=== PATIENT | female | born 1985 | race Caucasian/White ===

== ENCOUNTER 2019-06-30 07:28 | Outpatient (CLI) | payer OTHER, MEDICAID, SELFPAY ==
--- NOTE | 2019-06-30 07:30 | XR_ITS ---
WS: [id number] KUB, 06/30/2019 Clinical Data: URETERAL CALCULUS Comparison: CT abdomen and pelvis, 06/21/2019 Findings: No abnormal intraabdominal masses or calcifications are seen. There is no dilatated small bowel or ev idence of obstruction. There are calcifications in the right side is true pelvis and one of these could represent a distal r ight ureteral stone. There is fecal material throughout the colon. The bladder is partly full. XR/XR KUB [id number] Impression: 1. Negative for definite intrarenal calcifications. 2. Calcifications on the right side of the true pelvis, one of which could repr esent a ureteral calculus.
== END 2019-06-30 07:29 | disposition home or self-care (01) ==
LOC: RAD 07:32
PROVIDERS: Family Provider Nurse Practitioner Family; PCP Nurse Practitioner Family; Visit Provider Nurse Practitioner Family
DX: N20.1 Calculus of ureter (principal)
CPT/HCPCS: 74018; 81001

== ENCOUNTER 2019-07-11 11:53 | Observation (INO) | payer OTHER, MEDICAID, SELFPAY ==
[2019-06-30 13:04] VITALS: BMI 29.7
--- NOTE | 2019-06-30 13:44 | ANES.PREANE2 ---
Pre-Anesthetic Assessment Pre-Anesthetic Assessment: Height/Weight: Height 1.7 m Weight 86.183 kg Preop Diagnosis: Uterine fibroid Proposed Procedure: Operation Date: 07/11/19 07:00 Proposed Procedures p Laparoscopic Assist Vaginal [place] B[place] [address] D25.9(Not Applicable) - Yair Law MD s Poss Total Abdominal Hysterectomy(Not Applicable) - Yair Law MD Social: Packs per day: 1/4 Pack years: 5 Exam: Pre-Anes Outpt Exam: alert, oriented x 3, clear to auscultation bilaterally and regular rate & rhythm : Comments: stones Neuropsych: Neuropsych: DENIS Comments: 1 monthago Anesthetic Plan: ASA status: 2 Anesthesia: General PFSH Anesthesia PFSH: Social History Smoking and tobacco status: current some day smoker cigarettes [ Other cigarette details: 0.25 - 1 PPD ], pipe and e-cigarettes E-Cigarette Details: e-cigarette and with nicotine Quit status (tobacco): has quit using tobacco Year quit tobacco: 08/2018 Former quit date comment: WAS VAPING AND SMOKING CIGARETTES Alcohol intake: former Marital status: Current occupational status: employed History of recent travel: No Female Reproductive History: Date of last menstrual period: 05/26/19 Data Anesthesia Cardiac Studies: No Data to Display
[2019-06-30 13:54] LABS: Basophils % 0.4 %; Eosinophils # 0.1 10^3/uL (0.0-0.8); Eosinophils % 1.7 %; Hematocrit 43.5 % (37.0-47.0); Hemoglobin 14.1 g/dL (11.5-15.3); Lymphocytes # 3.4 10^3/uL (0.8-4.8); Lymphocytes % 43.3 %; Mean Corpuscular HGB Conc 32.4 g/dL (30.0-36.0); Mean Corpuscular Hemoglobin 30.7 pg (28.0-34.0); Mean Corpuscular Volume 94.8 fL (81-99); Mean Platelet Volume 9.9 fL (7.4-10.4); Monocytes # 0.3 10^3/uL (0.2-0.9); Monocytes % 3.9 %; Neutrophils # 3.9 10^3/uL (1.8-7.7); Neutrophils % 50.6 %; Nucleated Red Blood Cells % 0 %; Platelet Count 333 10^3/cmm (130-400); Red Blood Count 4.59 10^6/uL (4.1-5.3); Red Cell Distribution Width 13.1 % (12.1-15.1); White Blood Count 7.7 10^3/uL (4.0-10.0)
[2019-06-30 13:55] LABS: OR HCG Qualitative Urine Negative (Negative)
[2019-07-11] VITALS (22 sets, daily range): BP systolic 123–149; BP diastolic 69–91; PULSE 58–101; RESP 16–19; TEMP 36.1–37.2; O2SAT 95–100
--- NOTE | 2019-07-11 07:48 | SUR.PREOP ---
pt states she passed her stone wednesday of last week and notified office. she was given a follow up and dr yang will not be doing his part of todays procedure.
--- NOTE | 2019-07-11 08:02 | P.ANESASSM_ITS ---
Pre-Anesthetic Assessment Pre-Anesthetic Assessment: Height/Weight: Height 1.7 m Weight 86.183 kg Temp Pulse Resp BP Pulse Ox 97 F L 68 18 131/69 100 07/11/19 07:34 07/11/19 07:34 07/11/19 07:34 07/11/19 07:34 07/11/19 07:34 Preop Diagnosis: Refractory right distal ureteral stone (in conjunction with MARKETING SUPPORT ASSISTANT procedure) Proposed Procedure: Operation Date: 07/11/19 08:45 Proposed Procedures p Laparoscopic Assist Vaginal [place]st[place] B[place] [address]89 D25.9(Not Applicable) - Yair Law MD s Poss Total Abdominal Hysterectomy(Not Applicable) - Yair Law MD Familial anesthetic complications: none Last intake: Intake Last Liquid Date 07/10/19 Last Liquid Time 20:00 Last Solid Date 07/10/19 Last Solid Time 20:00 Social: Social History: Alcohol (occ) and Tobacco Exam: Pre-Anes Outpt Exam: alert, oriented x 3, clear to auscultation bilaterally and regular rate & rhythm Airway: Submandibular: WNL Cervical ROM: WNL MP: 1 Dentition: Other (teeth ok) History/ROS: No significant history except as noted Pulmonary: Pulmonary: None reported CV/HEM: CV/HEM: None reported : Comments: kidney stones Hepatic: Hepatic: None reported GI: GI: None reported Metabolic: Metabolic: None reported Musc/skel: Musc/skel: None reported Neuropsych: Neuropsych: Anxiety and Depression Anesthetic Plan: ASA status: 2 Anesthesia: Anesthesia Evaluation and General Risk of > 500 ml blood loss (7ml/kg in children): Yes, adequate IV access and fluids planned PFSH Anesthesia PFSH: Medical History History of herpes genitalis Leiomyoma of uterus (~2018) Ureteral calculus Surgical History H/O dilation and curettage (06/08/14) Treatement of miscarriage. Performed by Dr. Sheldon Flores at [facility] in [facility] [place]. H/O oral surgery Family History Father Hypertension Heart disease Stroke Diabetes Grandmother Diabetes MATERNAL Breast cancer MATERNAL Mother Lung cancer Grandfather Lung cancer MATERNAL Social History Smoking and tobacco status: current some day smoker cigarettes [ Other cigarette details: 0.25 - 1 PPD ], pipe and e-cigarettes E-Cigarette Details: e-cigarette and with nicotine Quit status (tobacco): has quit using tobacco Year quit tobacco: 08/2018 Former quit date comment: WAS VAPING AND SMOKING CIGARETTES Alcohol intake: former Marital status: Current occupational status: employed History of recent travel: No Female Reproductive History: Date of last menstrual period: 05/26/19 Data Anesthesia CBC & Chem 7: 06/30/19 13:20 Cardiac Studies: No Data to Display
[2019-07-11] MEDS: ketorolac 30 mg/mL INJ IVP ×2 (08:03→16:47)
[2019-07-11] MEDS: sodium chloride 0.9% 1,000 ML 30 ML IV (08:04)
--- NOTE | 2019-07-11 09:11 | P.HPUD_ITS ---
Surgery/Procedure H&P Update DATE OF PROCEDURE: July 11, 2019 DATE H&P PERFORMED: 06/30/19 H&P UPDATE INFORMATION: H&P completed within last 30 days, No changes to prior documentation and H&P is in [facility] EMR on date indicated PREOP DIAGNOSIS: Uterine fibroid, Menorrhagia, Dysmenorrhea PLANNED PROCEDURE: Operation Date: 07/11/19 08:45 Proposed Procedures p Laparoscopic Assist [place]inal [place] B[place] 57405 D25.9(Not Applicable) - Yair Law MD s Poss Total Abdominal Hysterectomy(Not Applicable) - Yair Law MD
[2019-07-11] MEDS: vasopressin 20 unit/mL INJ INJECTION (10:50)
--- NOTE | 2019-07-11 11:45 | P.OP_ITS ---
Operative Report Date of procedure: July 11, 2019 Pre-op Diagnosis: Uterine fibroid, Menorrhagia, Dysmenorrhea Post-op Diagnosis: Uterine fibroid, Menorrhagia, Dysmenorrhea Procedure Done: Laparoscopic assisted vaginal hysterectomy (greater than 250 g) with bilateral salpingectomy Specimens removed/disposition: Uterus, cervix, bilateral fallopian tubes. Surgeon: Yair Law Earth Science Teacher: Vic Narayan Earth Science Teacher: Jose Sandra, MS 3 Anesthesia: General Estimated blood loss (mL): 50 IV fluids (mL): 800 Complications: None Findings: Left fundal fibroid. Omental adhesions to the fibroid. Normal- appearing ovaries bilaterally. Brief History: 8, para 3-0-3-3 with an LMP of 05/26/2019 who is currently on Depo- Provera. Patient initially found to have a fibroid in 2011. It is been slowly increasing. She was initially planning on having a myomectomy due to desire for . However before she had the surgery, she had become . And delivered in March 2019. She was started on Depo-Provera following delivery. She has now decided to go ahead and proceed with hysterectomy. She has been treated with hormonal control in the past and is currently on hormonal control. Prior to the she was having heavy bleeding with her bleeding episodes lasting 7 to 9 days with 2 to 3 days being heavy. She was having to change 2 overnight pads per hour during her heaviest time. She was also having severe cramping with periods. Options were discussed with the patient. Questions were answered. She is presenting for hysterectomy. Procedure: Dr. Sandra was present and assisted with the entire case. The patient was taken to the operating room where general anesthesia was obtained. She was prepped and draped in the usual sterile fashion in the dorsal supine position with legs in Eduin style stirrups. Sequential compression boots were placed prior to starting the case. Chaudhry catheter was inserted and exam under anesthesia was performed. She was found to have an enlarged uterus with palpable fibroid.. Weighted speculum was placed in the vagina and the cervix was grasped with a single-tooth tenaculum. A Hulka was placed. The infraumbilical region was injected with 2% lidocaine with epinephrine. Skin incision was made with a knife in the lower edge of the navel and a size 10 trocar and sheath were inserted under direct visualization using an Optiview type technique. Trocar was removed and replaced with just the laparoscope confirming intra-abdominal placement. The anterior abdominal wall was inspected and noted to be free of adhesions. In the right and left lower quadrants, lateral to the inferior epigastric vessels, the skin was injected with 2% lidocaine with epinephrine. Skin incisions were made with the knife and a 5 mm trocar and sheath were inserted under direct visualization at each site. The pelvis was inspected. She had a large fibroid arising from the left fundal side of the uterus. Did not involve the broad ligament. Ovaries appeared normal. She had omental adhesions to the fibroid. Using the Voyant sealing device, the omental adhesions to the fibroid were taken down. Using the Voyant sealing device, the left fallopian tube and then utero-ovarian ligament were sealed and cut. The round ligament was sealed and cut and the dissection carried along the lateral aspect of the uterus to approximately the level of the internal os. The broad ligament was and the dissection carried over the lower uterine segment. Using the Voyant sealing device, the right utero-ovarian ligament and fallopian tube were sealed and cut. The round ligament was sealed and cut and the dissection carried along the lateral aspect of the uterus to approximately the level of the internal os. The broad ligament was and the dissection carried over the lower uterine segment to meet with the dissection from the contralateral side. The dissection areas were noted to be hemostatic. The abdomen was deflated. The patient's legs were placed in the high lithotomy position. The Hulka was removed and a weighted speculum placed in the vagina. The cervix was regrasped with single-tooth tenaculums. The cervix was circumferentially injected with dilute Pitressin solution. A circumferential incision was made with the knife around the cervix. Bladder was bluntly dissected off of the lower uterine seg ment. Posterior cul-de-sac was sharply entered and the peritoneum tagged to the vaginal mucosa in the midline. A long weighted retractor was placed in the posterior cul-de-sac. The uterosacral ligaments were clamped, cut, and suture ligated with 0 Vicryl suture bilaterally. The cardinal ligaments were clamped, cut, and suture ligated with 0 Vicryl suture bilaterally. The bladder was sharply dissected away from the uterus and the anterior cul-de-sac entered. A long right angle retractor was used to elevate the bladder away from the uterus. The remaining portion of the broad ligament was serially clamped, cut, and suture ligated with 0 Vicryl suture until the uterus was completely excised. The pedicles were inspected and noted to be hemostatic. Posterior edge of the vaginal cuff was oversewn with 0 Vicryl suture in a running locking fashion incorporating the peritoneum to the vaginal mucosa. This extended from the 3:00 position to the 9:00 position posteriorly. The vaginal cuff was closed in a vertical fashion using 0 Vicryl suture in an interrupted [id number] fashion. The uterosacral ligaments and cardinal ligaments were tied in the midline using previously held sutures. The cuff was noted to be hemostatic. The abdomen was reinflated and and the pelvis thoroughly inspected. These were noted to be hemostatic. The left fallopian tube was identified and grasped. Using the Voyant sealing device, the mesosalpinx was sealed and cut along the entire length of the tube and it was completely excised. It was brought out through the trocar site. The right fallopian tube was identified and grasped. Using the Voyant sealing device, the mesosalpinx was sealed and cut along the entire length of the tube and it was completely excised. It was brought out through the trocar site. The areas of dissection were irrigated and noted to be hemostatic. They were inspected under normal and low pressures. The abdomen was deflated and the ports removed. The 5 mm sites were closed with single stitches of 4-0 Vicryl suture. The umbilical site was closed with a deep stitch of 4-0 Vicryl suture followed by subcuticular closure of the skin. Skin was reapproximated with skin glue. Patient tolerated the procedures well. Sponge needle and instrument counts were correct. DRAINS: Chaudhry catheter POSTOPERATIVE STATUS: The patient was transferred to the recovery room in satisfactory condition.
[2019-07-11] MEDS: ondansetron 2 mg/ML SDV 2 mL 4 MG IVP (11:47)
--- NOTE | 2019-07-11 11:49 | SUR.PHASEI ---
1142 PATIENT TO OPS AT THIS TIME. PATIENT RESPONDS TO VERBAL STIMULI. DENIES PAIN. CULLEN CATH IN PLACE, SECURED TO LEG, DRAINING CLEAR YELLOW URINE. 3 STABS TO ABDOMEN.
[2019-07-11] MEDS: fentaNYL 50 mcg/mL INJ 2mL IVP ×2 (11:56→12:08)
--- NOTE | 2019-07-11 12:24 | SUR.PHASEI ---
PATIENT REPORTS PAIN FROM CATH. DENIES ABDOMINAL PAIN. DOESN'T WANT ADDITIONAL IV MEDS, WOULD LIKE TO GO UPSTAIRS FOR PAIN PILL AND WOULD LIKE CATH REMOVED.
--- NOTE | 2019-07-11 12:38 | PC.NURSE ---
Patient states her catheter pain is a 10/10. Denies any abdominal pain
--- NOTE | 2019-07-11 12:43 | SUR.PHASEI ---
1226 PATIENT TO OB AT THIS TIME. RR EVEN AND UNLABORED. 3 STABS TO ABDOMEN, CLOSED WITH EXOFIN, CDI.
--- NOTE | 2019-07-11 13:08 | PC.NURSE ---
This leader writer, assisted by Katt Lopez RN, replaced indwelling monroe catheter. After replacement, patient still states her pain is a 10/10 where her catheter is. Patient states she is starting to feel some abdominal pain at this time as well.
[2019-07-11] MEDS: dextrose 5%-lactated ringers 1,000 ML 125 ML IV (13:10)
--- NOTE | 2019-07-11 14:05 | PC.NURSE ---
Patient states her pain is a 9/10 at this time, from the catheter.
[2019-07-11] MEDS: HYDROcodone-acetaminophen 5-325 mg Tablet PO ×2 (14:24→19:36)
[2019-07-11] MEDS: fluoxetine 20 mg Capsule PO (14:24)
[2019-07-11] MEDS: phenazopyridine 100 mg Tablet 200 MG PO ×2 (14:24→20:15)
[2019-07-11] MEDS: docusate sodium 100 mg Capsule PO (17:12)
[2019-07-11] MEDS: simethicone 80 mg Chew PO (17:13)
[2019-07-12] MEDS: HYDROcodone-acetaminophen 5-325 mg Tablet PO ×2 (01:08→06:52)
[2019-07-12] MEDS: simethicone 80 mg Chew PO (04:01)
[2019-07-12 04:03] VITALS: BP 133/77; PULSE 58; RESP 16; TEMP 36.8; O2SAT 98
[2019-07-12 06:23] LABS: Hematocrit 36.7 % (37.0-47.0); Hemoglobin 11.7 g/dL (11.5-15.3); Mean Corpuscular HGB Conc 31.9 g/dL (30.0-36.0); Mean Corpuscular Hemoglobin 31.3 pg (28.0-34.0); Mean Corpuscular Volume 98.1 fL (81-99); Mean Platelet Volume 9.4 fL (7.4-10.4); Platelet Count 268 10^3/cmm (130-400); Red Blood Count 3.74 10^6/uL (4.1-5.3); Red Cell Distribution Width 13.2 % (12.1-15.1)
[2019-07-12] MEDS: phenazopyridine 100 mg Tablet 200 MG PO (09:05)
[2019-07-12] MEDS: fluoxetine 20 mg Capsule PO (09:05)
[2019-07-12] MEDS: docusate sodium 100 mg Capsule PO (10:42)
--- NOTE | 2019-07-12 10:54 | PM.DCS ---
Discharge Providers Date of Admission: 07/11/19 11:53 Date of Discharge: July 12, 2019 Attending Provider at Admission: Yair Law MD Attending Provider at Discharge: Yair Law MD Primary Care Provider: MAGDA Echeverria Diagnoses at Discharge Discharge Diagnosis (1) Leiomyoma of uterus: Status: Acute (2) Menorrhagia: Status: Acute Qualifiers: Menorrahagia type: with regular cycle Qualified Code(s): N92.0 - Excessive and frequent menstruation with regular cycle (3) Dysmenorrhea: Status: Acute Reason for Visit Reason for Visit: Reason For Visit: D25.9 Hospital Course Hospital Course: Had pain problems following surgery. Switch to 7.5 mg hydrocodone's at discharge. Physical Exam Urinary Catheter Management^: Chaudhry: Cath Placed During This Visit: yes Urethral Indwelling: No Urinary Catheter Date of Insertion: 07/11/19 Urinary Catheter Time of Insertion: 10:02 Discharge Data Data Completed and Pending: Pending at discharge Category Date Time Status ES surgery / GI i mages Routine Exams 07/11/19 08:13 Taken Pathology: Surgic al [PTH] Routine Pth 07/11/19 11:28 Received Labs from last 24 hours 07/12/19 06:15 WBC 12.0 H RBC 3.74 L Hgb 11.7 Hct 36.7 L MCV 98.1 MCH 31.3 MCHC 31.9 RDW 13.2 Plt Count 268 MPV 9.4 Vitals: Last Vital Signs Temp 98.3 F 07/12/19 04:03 Pulse 58 L 07/12/19 04:03 Resp 16 07/12/19 04:03 BP 133/77 07/12/19 04:03 Pulse Ox 98 07/12/19 04:03 Discharge Plan Discharge Patient Disposition: Home, Self-Care Condition: Stable Prescriptions: New [place] 7.5-325 mg tablet 1 - 2 tab PO Q6H PRN (Reason: pain) Qty: 30 RF: 0 ibuprofen 800 mg Tablet 800 mg PO TID Qty: 50 RF: 0 Continued fluoxetine 20 mg capsule 20 mg PO QDAY RF: 0 ondansetron HCl [Zofran] 4 mg tablet 4 mg PO Q8H RF: 0 acetaminophen 500 mg tablet 1,000 mg PO PRN PRN (Reason: Pain) RF: 0 Discontinued oxycodone-acetaminophen 5-325 mg Tablet 1 tab PO Q4H PRN (Reason: Pain) RF: 0 Discharge Orders: Discharge Order (Routine); Ordered 07/12/19 Ordered By: Yair Law Referrals: Yair Law MD [Physician] - 2 weeks (for postop check) Discharge Diet: Regular Discharge Activity: Limit activity as instructed Patient Instructions: Laparoscopically Assisted Vaginal Hysterectomy (DC), OB Discharge Report Activity Restrictions/Additional Instructions: Provide my written discharge instructions for hysterectomy Discharge Attestations Time Spent in Discharge Care*: less than 30 min Quality Metrics Clinical Quality Measures During this hospital stay, did patient experience: None Coding Level of Care Code Acute Water Resource Project Manager for Chg Fwd Diagnoses Leiomyoma of uterus D25.9 Menorrhagia N92.0 Menorrahagia type: with regular cycle Dysmenorrhea N94.6
--- NOTE | 2019-07-12 11:16 | P.DS_ITS ---
Discharge Providers Date of Admission: 07/11/19 11:53 Date of Discharge: July 12, 2019 Attending Provider at Admission: Yair Law MD Attending Provider at Discharge: Yair Law MD Primary Care Provider: MAGDA Echeverria Diagnoses at Discharge Discharge Diagnosis (1) Leiomyoma of uterus: Status: Acute (2) Menorrhagia: Status: Acute Qualifiers: Menorrahagia type: with regular cycle Qualified Code(s): N92.0 - Excessive and frequent menstruation with regular cycle (3) Dysmenorrhea: Status: Acute Reason for Visit Reason for Visit: Reason For Visit: Surgery Hospital Course Hospital Course: Patient is a 34-year-old white female 6, para 3-0-3-3 with an LMP of 05/26/2019 who is on Depo-Provera. She had been identified as having a uterine fibroid in 2011. It is been slowly increasing in size. She had heavy bleeding episodes with the bleeding lasting 7 to 9 days with 2 to 3 days being heavy. During her heaviest time she changed 2 overnight pads per hour. She was also reporting significant cramping with the periods. She was originally planning a myomectomy due to desire for in the feeling that this was contributing to her not getting . However, she had a spontaneous and now wished to proceed with a hysterectomy. Patient was admitted to the hospital where a laparoscopic assisted vaginal hysterectomy with bilateral salpingectomy was performed. She tolerated the surgery well. Following surgery, however, she had significant pain issues requiring parenteral pain medication. As result she was kept through the night. POSTOPERATIVE DAY 1 Patient was reporting doing better. Her pain was controlled with oral medications. She was tolerating a regular diet without nausea or vomiting. She was ambulating without lightheadedness or dizziness. She denied any shortness of breath or chest pains. She denied any problems with urination. She reported passing flatus. PHYSICAL EXAM: See below. PLAN Discharged home. Discharge instructions discussed with patient. She is being switched to 7.5 mg [place] and scheduled ibuprofen for pain management at home. She is to follow-up in the office in approximately 2 weeks. Physical Exam Const: COMMON NORMALS: no apparent distress, average body habitus, alert and well nourished GENERAL APPEARANCE: well developed ORIENTATION/CONSCIOUSNESS: Yes oriented to person, Yes oriented to place and Yes oriented to time Resp: COMMON NORMALS: normal respiratory effort and clear to auscultation bila terally AUSCULTATION: clear to auscultation bilaterally Cardio: COMMON NORMALS: regular rate, regular rhythm, no gallops, no murmurs and no rub RATE: regular rate RHYTHM: regular rhythm GI: COMMON NORMALS: soft to palpation, no hepatosplenomegaly and no masses INSPECTION: Yes incision (Well approximated without erythema noted.) AUSCULTATION: Yes normoactive bowel sounds PALPATION: Yes soft, Yes tender (Lower abdomen), Yes no hepatosplenomegaly and No hernia : EXTERNAL FEMALE EXAM: No hernia Neuro: SENSORIUM/ORIENTATION: Yes alert, Yes oriented to person, Yes oriented to place and Yes oriented to time Psych: COMMON NORMALS: affect normal MOOD & AFFECT: Yes euthymic mood Urinary Catheter Management^: Chaudhry: Cath Placed During This Visit: yes Urethral Indwelling: No Urinary Catheter Date of Insertion: 07/11/19 Urinary Catheter Time of Insertion: 10:02 Discharge Data Data Completed and Pending: Pending at discharge Category Date Time Status ES surgery / GI i mages Routine Exams 07/11/19 08:13 Taken Pathology: Surgic al [PTH] Routine Pth 07/11/19 11:28 Received Labs from last 24 hours 07/12/19 06:15 WBC 12.0 H RBC 3.74 L Hgb 11.7 Hct 36.7 L MCV 98.1 MCH 31.3 MCHC 31.9 RDW 13.2 Plt Count 268 MPV 9.4 Vitals: Last Vital Signs Temp 98.3 F 07/12/19 04:03 Pulse 58 L 07/12/19 04:03 Resp 16 07/12/19 04:03 BP 133/77 07/12/19 04:03 Pulse Ox 98 07/12/19 04:03 Discharge Plan Discharge Patient Disposition: Home, Self-Care Condition: Stable Prescriptions: [place] 7.5-325 mg tablet 1 - 2 tab PO Q6H PRN (Reason: pain) Qty: 30 RF: 0 ibuprofen 800 mg Tablet 800 mg PO TID Qty: 50 RF: 0 Continued fluoxetine 20 mg capsule 20 mg PO QDAY RF: 0 ondansetron HCl [Zofran] 4 mg tablet 4 mg PO Q8H RF: 0 acetaminophen 500 mg tablet 1,000 mg PO PRN PRN (Reason: Pain) RF: 0 Discontinued oxycodone-acetaminophen 5-325 mg Tablet 1 tab PO Q4H PRN (Reason: Pain) RF: 0 Discharge Orders: Discharge Order (Routine); Ordered 07/12/19 Ordered By: Yair Law Referrals: Yair Law MD [Physician] - 07/27/19 8:45 am (Your 2 week follow up is 07/27/2019 at 8:45am. Your 6 week follow up appointment is 08/14/2019 10:45am. ) Discharge Diet: Regular Discharge Activity: Limit activity as instructed Patient Instructions: Laparoscopically Assisted Vaginal Hysterectomy (DC), OB Discharge Report, OB Laproscopic Surgery - [facility] Activity Restrictions/Additional Instructions: Provide my written discharge instructions for hysterectomy Discharge Attestations Time Spent in Discharge Care*: less than 30 min Quality Metrics Clinical Quality Measures During this hospital stay, did patient experience: None Coding Level of Care Code Acute Robotype Operator for Chg Fwd Diagnoses Leiomyoma of uterus D25.9 Menorrhagia N92.0 Menorrahagia type: with regular cycle Dysmenorrhea N94.6
[2019-07-12 11:50] VITALS: BP 121/80; PULSE 82; RESP 16; TEMP 37; O2SAT 99
== END 2019-07-12 11:59 | disposition home or self-care (01) ==
LOC: OBGYN 11:55
PROVIDERS: Admitting Provider Obstetrics & Gynecology; Family Provider Nurse Practitioner Family; PCP Nurse Practitioner Family; Visit Provider Obstetrics & Gynecology
PROC: 0UT9FZZ Resection of Uterus, Via Natural or Artificial Opening With Percutaneous Endoscopic Assistance (ICD-10-PCS; CPT 58552; principal; 2019-07-11 08:45)
DX: D25.9 Leiomyoma of uterus, unspecified (principal); N92.0 Excessive and frequent menstruation with regular cycle; N94.6 Dysmenorrhea, unspecified; Z82.49 Family history of ischemic heart disease and other diseases of the circulatory system; Z83.3 Family history of diabetes mellitus; F17.210 Nicotine dependence, cigarettes, uncomplicated
CPT/HCPCS: 58552; 12345; 36415; 81025; 84703; 85025; 85027; 86850; 86900; 87086; 88307; 96361; 96365; 96374; 96375; G0378; J0690; J1100; J1885; J2001; J2250; J2405; J2704; J3010; J3490; J7030

== ENCOUNTER 2019-12-28 08:30 | Outpatient (CLI) | payer OTHER, MEDICAID, SELFPAY ==
--- NOTE | 2019-12-28 08:30 | XRR_ITS ---
PROCEDURE INFORMATION: Exam: XR Abdomen, 1 View Exam date and time: 12/28/2019 8:47 AM Age: 34 years old Clinical indication: Condition or disease; Kidney or ureter condition; Calculus (stone) in ureter; Additional info: Ureteral stone TECHNIQUE: Imaging protocol: XR of the abdomen. Views: Frontal supine view of the abdomen. 1 View. COMPARISON: CR XR KUB [id number] 06/30/2019 7:40 AM FINDINGS: Gastrointestinal tract: Prominent stool, in a pattern suggesting constipation. Organs: Partial obscuration of the renal fossa by bowel gas and stool. Intraperitoneal space: Two adjacent 1 mm calcifications overlying the right pelvis, which can be better characterized with CT if urolithiasis is of clinical concern. Bones/joints: No acute osseous pathology. XR/XR KUB [id number] IMPRESSION: 1. Prominent stool, in a pattern suggesting constipation. 2. Two adjacent 1 mm calcifications overlying the right pelvis, which can be better characterized with CT if urolithiasis is of clinical concern.
== END 2019-12-28 08:31 | disposition home or self-care (01) ==
LOC: RAD 08:34
PROVIDERS: Family Provider Nurse Practitioner Family; PCP Nurse Practitioner Family; Visit Provider Urology
DX: N20.1 Calculus of ureter (principal)
CPT/HCPCS: 74018; 81001; 82365

== ENCOUNTER → 2020-01-24 10:15 | Outpatient (BNVA) | payer MEDICAID, SELFPAY | PROVIDERS: Family Provider Nurse Practitioner Family; PCP Nurse Practitioner Family; Visit Provider Counselor Professional | DX: F33.2 Major depressive disorder, recurrent severe without psychotic features (principal); F41.1 Generalized anxiety disorder; F43.12 Post-traumatic stress disorder, chronic | CPT/HCPCS: 90834 ==

== ENCOUNTER → 2020-02-02 14:50 | Outpatient (BNVA) | payer MEDICAID, SELFPAY | PROVIDERS: Family Provider Nurse Practitioner Family; PCP Nurse Practitioner Family; Visit Provider Psychiatry & Neurology Psychiatry | DX: F33.2 Major depressive disorder, recurrent severe without psychotic features (principal); F41.1 Generalized anxiety disorder; F43.12 Post-traumatic stress disorder, chronic; F17.200 Nicotine dependence, unspecified, uncomplicated | CPT/HCPCS: 99204 ==

== ENCOUNTER → 2020-03-15 08:09 | Outpatient (BNVA) | payer MEDICAID, SELFPAY | PROVIDERS: Family Provider Nurse Practitioner Family; PCP Nurse Practitioner Family; Visit Provider Psychiatry & Neurology Psychiatry | DX: F43.12 Post-traumatic stress disorder, chronic (principal); F41.1 Generalized anxiety disorder; F33.2 Major depressive disorder, recurrent severe without psychotic features | CPT/HCPCS: 90832; 99213 ==

== ENCOUNTER → 2020-03-19 09:13 | Outpatient (BNVA) | payer MEDICAID, SELFPAY | PROVIDERS: Family Provider Nurse Practitioner Family; PCP Nurse Practitioner Family; Visit Provider Nurse Practitioner Family | DX: R06.02 Shortness of breath (principal) | CPT/HCPCS: 71046 ==

== ENCOUNTER → 2020-04-16 15:19 | Outpatient (BNVA) | payer MEDICAID, SELFPAY | PROVIDERS: Family Provider Nurse Practitioner Family; PCP Nurse Practitioner Family; Visit Provider Counselor Professional | DX: F41.1 Generalized anxiety disorder (principal); F33.2 Major depressive disorder, recurrent severe without psychotic features; F43.12 Post-traumatic stress disorder, chronic | CPT/HCPCS: 90832 ==

== ENCOUNTER → 2020-07-16 11:50 | Outpatient (BNVA) | payer MEDICAID, SELFPAY | PROVIDERS: Family Provider Nurse Practitioner Family; PCP Nurse Practitioner Family; Visit Provider Nurse Practitioner Family | DX: M25.551 Pain in right hip (principal); M25.552 Pain in left hip; R53.83 Other fatigue; Z79.899 Other long term (current) drug therapy; Z13.6 Encounter for screening for cardiovascular disorders; E55.9 Vitamin D deficiency, unspecified; M79.7 Fibromyalgia; M54.16 Radiculopathy, lumbar region | CPT/HCPCS: 80053; 80061; 81003; 82306; 83036; 84443; 85025 ==

== ENCOUNTER 2020-07-19 11:04 | Outpatient (CLI) | payer MEDICAID, SELFPAY ==
--- NOTE | 2020-07-19 11:10 | XR_ITS ---
WS: [id number] PELVIS AND BILATERAL HIPS TECHNIQUE: AP pelvis and AP and lateral hips. HISTORY: M25.551 - Pain in right hip COMPARISON: 04/01/2018 Pelvis: Symmetric appearance of the bones and soft tissues of the pelvis. Previous the described part ially calcified mass in the pelvis is no longer present and likely surgically removed. Right hip: No fracture, dislocation or joint abnormality. Left hip: No fracture, dislocation or joint abnormality. XR/XR hip BI m 5V wo/w pel* [id number] IMPRESSION: Normal pelvis and bilateral hip radiographs.
--- NOTE | 2020-07-19 11:10 | XR_ITS ---
WS: [id number] LUMBAR SPINE: 7 VIEWS TECHNIQUE: AP, oblique, lateral, L5-S1 spot. Upright lateral projections in neutral, flexion and exte nsion. HISTORY: M54.16 - Radiculopathy, lumbar region COMPARISON: 04/01/2018 Normal lumbar alignment. Disc spaces and vertebral body heights are normal. With flexion and extensio n no instability. Foramina are widely patent. No osteophytosis. No facet arthritis. No loss of disc space or vertebral body height. SI joints are symmetric bilaterally. No soft tissue abnormalities. XR/XR lumbar spine 6V w f/e [id number] IMPRESSION: Normal lumbar spine radiographs. No lumbar spine instability.
== END 2020-07-19 11:05 | disposition home or self-care (01) ==
LOC: RADWPI 11:08
PROVIDERS: PCP Nurse Practitioner Family; Visit Provider Nurse Practitioner Family
DX: M25.551 Pain in right hip (principal); M54.16 Radiculopathy, lumbar region
CPT/HCPCS: 72114; 73523

== ENCOUNTER 2020-09-05 06:00 | Outpatient (RCR) | payer MEDICAID, SELFPAY | END 2020-09-20 23:59 | disposition home or self-care (01) | LOC: WPT 06:00 | PROVIDERS: PCP Nurse Practitioner Family; Referring Provider Nurse Practitioner Family; Visit Provider Nurse Practitioner Family | DX: M54.5 Low back pain (principal); G89.29 Other chronic pain; M25.559 Pain in unspecified hip | CPT/HCPCS: 97110 ==

== ENCOUNTER → 2020-09-24 08:25 | Outpatient (BNVA) | payer MEDICAID, SELFPAY | PROVIDERS: PCP Nurse Practitioner Family; Visit Provider Psychiatry & Neurology Psychiatry | DX: F43.12 Post-traumatic stress disorder, chronic (principal); F41.1 Generalized anxiety disorder; F33.2 Major depressive disorder, recurrent severe without psychotic features; F17.200 Nicotine dependence, unspecified, uncomplicated | CPT/HCPCS: 99214 ==

== ENCOUNTER → 2020-10-31 11:57 | Outpatient (BNVA) | payer MEDICAID, SELFPAY | PROVIDERS: PCP Nurse Practitioner Family; Visit Provider Nurse Practitioner Family | DX: G89.29 Other chronic pain (principal); M25.50 Pain in unspecified joint | CPT/HCPCS: 85651; 86038; 86140; 86431 ==

== ENCOUNTER → 2020-11-20 15:41 | Outpatient (BNVA) | payer OTHER, SELFPAY | PROVIDERS: PCP Nurse Practitioner Family; Visit Provider Psychiatry & Neurology Psychiatry | DX: F43.12 Post-traumatic stress disorder, chronic (principal); F41.1 Generalized anxiety disorder; F33.2 Major depressive disorder, recurrent severe without psychotic features; F17.200 Nicotine dependence, unspecified, uncomplicated | CPT/HCPCS: 99213 ==

== ENCOUNTER → 2020-12-18 08:51 | Outpatient (BNVA) | payer MEDICAID, SELFPAY | PROVIDERS: PCP Nurse Practitioner Family; Visit Provider Internal Medicine Rheumatology | DX: M25.551 Pain in right hip (principal); M25.552 Pain in left hip; M54.5 Low back pain; G89.29 Other chronic pain; G57.03 Lesion of sciatic nerve, bilateral lower limbs; F17.210 Nicotine dependence, cigarettes, uncomplicated | CPT/HCPCS: 99204 ==

== ENCOUNTER 2020-12-30 09:14 | Outpatient (CLI) | payer MEDICAID, SELFPAY ==
--- NOTE | 2020-12-30 09:15 | XRR_ITS ---
PROCEDURE INFORMATION: Exam: XR Abdomen Exam date and time: 12/30/2020 9:15 AM Age: 35 years old Clinical indication: Condition or disease; Kidney or ureter condition; Calculus (stone) in ureter; Additional info: Ureteral calculus TECHNIQUE: Imaging protocol: XR of the abdomen. Views: Frontal supine view of the abdomen. 1 View. COMPARISON: 1. CR XR KUB [id number] 12/28/2019 8:[address] abdomen pelvis wo con [id number] 06/21/2019 12:22:45 PM FINDINGS: Gastrointestinal tract: No dilated gas-filled loops of bowel. Moderate amount of stool in the colon. Organs: No definite radiopaque renal or ureteral calculi, but the kidneys are partially obscured by enteric matter in the colon, particularly on the right side. Vasculature: There are 2 calcified phleboliths in the right pelvis. Bones/joints: No acute osseous abnormality. XR/XR KUB [id number] IMPRESSION: No radiopaque renal or ureteral calculi visualized.
== END 2020-12-30 09:15 | disposition home or self-care (01) ==
PROVIDERS: PCP Nurse Practitioner Family; Visit Provider Urology
DX: N20.1 Calculus of ureter (principal)
CPT/HCPCS: 74018; 81003

== ENCOUNTER → 2021-01-13 09:41 | Outpatient (BNVA) | payer MEDICAID, SELFPAY | PROVIDERS: PCP Nurse Practitioner Family; Visit Provider Nurse Practitioner Family | DX: Z20.822 Contact with and (suspected) exposure to COVID-19 (principal) | CPT/HCPCS: 87635 ==

== ENCOUNTER 2021-12-30 08:30 | Outpatient (CLI) | payer MEDICAID, SELFPAY ==
--- NOTE | 2021-12-30 08:30 | XR_ITS ---
WS: [id number] XR KUB [id number] REASON FOR EXAM: renal calculus FINDINGS: Previously identified (CT scan 06/21/2019) right renal calculus is not identifiable on this examinatio n. There is a large amount of colon content overlying the right kidney. No other urinary tract calculi are identified. Examination is unchanged compared to 12/30/2020. XR/XR KUB [id number] IMPRESSION: No urinary tract calculi identifiable.
== END 2021-12-30 08:31 | disposition home or self-care (01) ==
LOC: RAD 08:30
PROVIDERS: PCP Nurse Practitioner Family; Visit Provider Urology
DX: N20.0 Calculus of kidney (principal)
CPT/HCPCS: 74018; 81003; 99213

== ENCOUNTER 2022-02-10 11:13 | Outpatient (CLI) | payer MEDICAID, SELFPAY ==
[2022-02-10 14:16] LABS: Anion Gap 12.8 (5-19); Blood Urea Nitrogen 12 mg/dL (6-20); Calcium 9.9 mg/dL (8.5-10.5); Carbon Dioxide 27 mmol/L (22-29); Chloride 100 mmol/L (98-107); Glomerular Filtration Rate 113.8 mL/min (90-130); Glucose 87 mg/dL (65-115); Osmolality Calculated 281 mOsm/kg (285-295); Phosphorus 2.5 mg/dL (2.5-4.5); Potassium 3.8 mmol/L (3.5-5.1); Sodium 136 mmol/L (136-145); Uric Acid 3.3 mg/dL (2.4-5.7)
[2022-02-16 15:24] LABS: Calcium-Oxalate 2.07 (<2.00); Uric Stone 0.16 (<2.00); Urine Ammonia 24 Hour 19 mEq/day (14-62); Urine Citric Acid 24 Hour 1772 mg/day (>320); Urine PH 24 Hour 7.4 (5.5-7.0); Urine Phosphorus 24 Hour 537 mg/day (<1100); Urine Potassium 24 Hour 65 mEq/day (19-135); Urine Sulfate 24 Hour 12 mmol/day (<30)
== END 2022-02-10 11:14 | disposition home or self-care (01) ==
LOC: LAB 11:18
PROVIDERS: PCP Family Medicine; Visit Provider Urology
DX: N20.0 Calculus of kidney (principal)
CPT/HCPCS: 36415; 80048; 81003; 82131; 82140; 82340; 82436; 82507; 82570; 83735; 83935; 84100; 84300; 84550

== ENCOUNTER 2022-03-12 13:15 | Outpatient (CLI) | payer MEDICAID, SELFPAY ==
--- NOTE | 2022-03-12 13:26 | XR_ITS ---
WS: [id number] KUB, AP view, 03/12/2022 Clinical Data: Renal Calculus Comparison: KUB, 12/30/2021. Findings: No abnormal intraabdominal masses or calcifications are seen. There is no dilatated small bowel or ev idence of obstruction. There is fecal material throughout the colon and it is obscuring detail over both kidneys. XR/XR KUB [id number] Impression: Negative KUB.
== END 2022-03-12 13:16 | disposition home or self-care (01) ==
LOC: RAD 13:18
PROVIDERS: PCP Family Medicine; Visit Provider Urology
DX: N20.0 Calculus of kidney (principal)
CPT/HCPCS: 74018; 81003

== ENCOUNTER → 2024-11-01 15:10 | Outpatient (BNVA) | payer BC, SELFPAY | PROVIDERS: PCP Nurse Practitioner Family; Visit Provider Nurse Practitioner Family | DX: Z13.6 Encounter for screening for cardiovascular disorders (principal); E66.9 Obesity, unspecified; E55.9 Vitamin D deficiency, unspecified; R53.83 Other fatigue; Z79.899 Other long term (current) drug therapy | CPT/HCPCS: 80053; 80061; 81003; 82306; 83036; 84443; 85025 ==